=== PATIENT | male | born 1965 | race Caucasian/White ===

== ENCOUNTER 2019-03-01 14:37 | Emergency (ER) | payer OTHER ==
[~2019-03-01] VITALS: Ht 175.3 cm; Wt 68.0 kg
[2019-03-01] MEDS ORDERED: CENTANY30 GM TOP (16:00)
[2019-03-01] MEDS ORDERED: KEFLEX500 M1 PO (16:00)
[2019-03-01] MEDS ORDERED: NABUMETONE 750750 M1 PO (16:00)
[2019-03-01 16:18] VITALS: BP 135/85
== END 2019-03-01 16:18 | disposition home or self-care (01) ==
LOC: M.ERS 14:37
DX: S51.832A Puncture wound without foreign body of left forearm, initial encounter (principal); S50.812A Abrasion of left forearm, initial encounter; Y04.0XXA Assault by unarmed brawl or fight, initial encounter; Y93.89 Activity, other specified; Y92.69 Other specified industrial and construction area as the place of occurrence of the external cause; Y99.8 Other external cause status